=== PATIENT | female | born 1975 | race American Indian/Alaskan Native ===

== ENCOUNTER 2016-10-31 09:46 | Outpatient (CLI) | payer BC ==
--- NOTE | 2016-10-31 11:32 | Mammography Report ---
BILATERAL DIGITAL DIAGNOSTIC MAMMOGRAM with CAD: 10/31/16 09:46:00 CLINICAL: Status post right ultrasound needle biopsy on 06/30/16. The biopsy was performed at 12 o'clock 4 cm from nipple at [facility]. Although the biopsy result was nonspecific benign pathology, surgical excision was recommended for discordance with a mammographic density. Routine screening of the left breast. COMPARISON:2016 and 2017 mammograms and right breast ultrasound images from [facility] FINDINGS: The breasts are heterogeneously dense, which may obscures small masses. A previous right upper outer asymmetry is no longer identified. No mammographic finding at a right biopsy clip at 11:30-12 o'clock No mass, architectural distortion or suspicious calcifications. The left breast is negative. IMPRESSION: No mammographic evidence of malignancy. BI-RADS CATEGORY: 2 - - Benign RECOMMENDATION: Routine mammographic screening in one year. ACR BI-RADS MAMMOGRAPHIC CODES: 0 = Needs additional imaging evaluation; 1 = Negative; 2 = Benign; 3 = Probably benign; 4 = Suspicious; 5 = Malignant; 6 = Known biopsy-proven malignancy COMMENT: 1. Dense breast tissue, i.e., adenosis, fibrocystic changes, etc., may obscure an underlying neoplasm. 2. Approximately 10% of cancers are not detected with mammography. 3. A negative mammography report should not delay biopsy if a clinically suspicious mass is present. COMMENT: Patient follow-up letters are generated by our [employer] application.
== END 2016-10-31 09:47 | disposition home or self-care (01) ==
LOC: SPVWC 09:46
PROVIDERS: ATTEND Surgery
DX: Z12.31 Encounter for screening mammogram for malignant neoplasm of breast (principal)
CPT/HCPCS: 77066; G0204

== ENCOUNTER 2016-11-06 06:51 | Day surgery (SDC) | payer BC ==
--- NOTE | 2016-11-06 08:08 | Anesthesia Consultation ---
Anesthesia Consult and Med Hx Date of service: 11/06/16 - Airway Anesthetic Teeth Evaluation: Good ROM Head & Neck: Adequate Mental/Hyoid Distance: Adequate Mallampati Class: Class III Intubation Access Assessment: Possibly Difficult - Pulmonary Exam CTA: Yes - Cardiac Exam Cardiac Exam: RRR - Pre-Operative Health Status ASA Pre-Surgery Classification: ASA2 Proposed Anesthetic Plan: General (no previous GA) - Pulmonary Hx Smoking: No Hx Sleep Apnea: No (JEREMY PRE SCREEN LOW RISK) - Cardiovascular System Hx Hypertension: Yes (X 4 YRS; took beta adenike today) - Other Systems Hx Cancer: No Hx Obesity: Yes
--- NOTE | 2016-11-06 08:11 | Anesthesia Day of Surgery ---
Anesthesia Day of Surgery - Day of Surgery Patient Examined: Yes Patient H&P Reviewed: Yes Patient is NPO: Yes Beta Blockers: Yes
[2016-11-06] MEDS ORDERED: VERSED IV NR (08:30)
[2016-11-06] MEDS ORDERED: LACTATED RINGERS 1,000 ML IV SCH (08:30)
[2016-11-06] MEDS ORDERED: PEPCID IV NR (08:30)
[2016-11-06] MEDS ORDERED: XYLOCAINE 1% 20 mL ONE ×2 (08:40→11:04)
[2016-11-06] MEDS ORDERED: VANCOMYCIN/NS 1 GM/250 ML 1 GM/250 ML BAG IV NR (09:00)
[2016-11-06] MEDS ORDERED: DIPRIVAN 10 MG/ML IV ONE (09:04)
[2016-11-06] MEDS ORDERED: DILAUDID ONE (09:05)
--- NOTE | 2016-11-06 09:08 | Procedure Note ---
Date of procedure: 11/06/16 Pre-op diagnosis: rt.breast lesion Post-op diagnosis: same Procedure: needle loc Findings: n/a Anesthesia: local Surgeon: LEX FRAGOSO Estimated blood loss: minimal Pathology: none Condition: stable (surgery)
--- NOTE | 2016-11-06 10:25 | Mammography Report ---
Right breast needle localization: The patient presents with a marker in the superior right breast. The skin was cleansed on the superior breast and 1% lidocaine used for local anesthesia. Using mammographic grid technique for guidance a 5 cm Pineda needle was placed in its position confirmed with mammography. A needle was then introduced with removal of the needle with additional confirmation with mammography. There are no patient complications.
[2016-11-06] MEDS ORDERED: WATER FOR IRRIG STERILE IR ONE (10:38)
[2016-11-06] MEDS ORDERED: XYLOCAINE 1% 20 mL INFILTRATI ONE (10:38)
[2016-11-06] MEDS ORDERED: MARCAINE 0.25% INFILTRATI ONE ×2 (10:38→11:04)
[2016-11-06] MEDS ORDERED: BENADRYL IV ONE (11:00)
[2016-11-06] MEDS ORDERED: ZOFRAN ONE (11:19)
[2016-11-06] MEDS ORDERED: XYLOCAINE MPF 2% ONE (11:19)
--- NOTE | 2016-11-06 11:36 | Mammography Report ---
Operative specimen mammogram: A single tissue specimen is submitted that includes the targeted marker and localizing wire.
--- NOTE | 2016-11-06 11:45 | Short Stay Summary ---
Short Stay Documentation Date of service: 11/06/16 - History H&P: obtained from office - Allergies and Medications Current Medications: Allergies Penicillins Allergy (Verified 11/01/16 14:51) Swelling Home Medications Medication Instructions Recorded Confirmed Last Taken Type Cholecalciferol Vit D3 [Vitamin D3] 1,000 unit PO QDAY 11/01/16 11/06/16 History Cyanocobalamin (Vitamin B-12) 2,500 mcg PO DAILY 11/01/16 11/06/16 Unknown History [Vitamin B12] Ferrous Sulfate [Feosol] 325 mg PO QDAY 11/01/16 11/01/16 Unknown History Multivit-Min/FA/Lycopen/Lutein 1 each PO DAILY 11/01/16 11/01/16 Unknown History [Centrum Silver Tablet] Norgestimate-Ethinyl Estradiol 1 tab PO DAILY 11/01/16 11/01/16 Unknown History [Tri-Estarylla Tablet] Bisoprolol/Hctz [Ziac 5-6.25] 1 each PO DAILY 11/06/16 11/06/16 11/06/16 05:50 History HYDROcodone/APAP 5-325 [Mccormick 1 each PO Q6HR PRN #30 tablet 11/06/16 Unknown Rx 5/325] Active Medications Famotidine (Pepcid) 20 mg IV PREOP NR Stop: 11/06/16 14:00 Last Admin: 11/06/16 09:39 Dose: 20 mg Lactated Ringer's (Lactated Ringers) 1,000 mls @ 125 mls/hr IV DIRECT KEO Stop: 11/06/16 21:00 Last Admin: 11/06/16 09:35 Dose: 125 mls/hr Vancomycin HCl (Vancomycin/Ns 1 Gm/250 Ml) 1 gm in 250 mls @ 167.007 mls/hr IV PREOP NR PRN Reason: Protocol Stop: 11/06/16 18:00 Last Admin: 11/06/16 09:40 Dose: 167.007 mls/hr Midazolam HCl (Versed) 2 mg IV PREOP NR Stop: 11/06/16 18:00 Last Admin: 11/06/16 09:37 Dose: 2 mg - Brief post op/procedure progress note Date of procedure: 11/06/16 Pre-op diagnosis: Right breast mass Post-op diagnosis: same Procedure: Right needle localization excisional biopsy Anesthesia: GETA Findings: Radiograph specimen with wire and clip present Surgeon: NORRIS PIERSON Estimated blood loss: minimal Pathology: list (right excisional biopsy) Specimen disposition: to lab Condition: stable - Disposition Condition at discharge: Good Disposition: DC-01 TO HOME OR SELFCARE Short Stay Discharge Plan Activity: other (no heavy lifting) Diet: regular Wound: other (keep incision clean and dry; may shower in 24 hours; no baths, pools or lakes; do not rub or scrub incision) Follow up with: ROMAN FORRESTER [Other] - 7 Days NORRIS PIERSON MD [Staff Physician] - 7 Days Prescriptions: HYDROcodone/APAP 5-325 [Mccormick 5/325] 1 each PO Q6HR PRN #30 tablet PRN Reason: Pain
--- NOTE | 2016-11-06 11:50 | Operative Report ---
Operative Report Operative Report: Date of service: 11/06/2016 Preoperative diagnosis: Right breast mass of the upper outer quadrant Postoperative diagnosis: Same Procedure right needle procedure: Right needle localization excisional biopsy Surgeon: Leandra Jauregui M.D. Anesthesia: Gen. Findings: Radiographic specimen with clip and wire present Complications: None Estimated blood loss: Minimal Specimens: Right breast excisional biopsy Disposition: PACU in good condition Indications for operative procedure: This is a 41-year-old -[place] lady with history of abnormal right mammogram. Patient with ultrasound-guided needle core biopsy performed of suspicious area noted on ultrasound by outside radiologist with findings of discordant pathology. Radiology recommendations for excisional biopsy. Patient wished to proceed with the above procedure. Procedure in detail: Prior to going to the operating room radiology place dwire to localize the area of concern at clip placement. The patient was taken to the operating room. She was laid supine. Gen. anesthesia was administered without any complications. The right breast was prepped and draped in the normal sterile operative fashion. The wire was identified. Timeout was performed. Skin incision was made at the 12 o'clock position with a 15 blade knife and dissection taken down to the subcutaneous tissues. The wire was removed from the skin superiorly. First began with raising of the superior flap , followed by raising of the inferior, lateral and medial flap. Area of concern was reportedly removed. Wire was not encountered. Specimen was marked. Right breast radiograph specimen with clip and wire present. Breast cavity was anesthetized with 1% lidocaine mixed with quarter percent Marcaine. Hemostasis was obtained. The subcutaneous tissues were approximated and then closed using interrupted 3-0 Vicryl and skin brought together and closed using 4 -0 Monocryl followed by skin affix. She tolerated surgery very well and was awaken from anesthesia without any complications and transferred to PACU in good condition.
[2016-11-06 18:27] VITALS: BP 136/86
== END 2016-11-06 13:38 | disposition home or self-care (01) ==
LOC: OR 06:51
PROVIDERS: ATTEND Surgery
DX: N60.31 Fibrosclerosis of right breast (principal); I10 Essential (primary) hypertension; E66.9 Obesity, unspecified; Z68.34 Body mass index [BMI] 34.0-34.9, adult; Z79.899 Other long term (current) drug therapy; Z88.0 Allergy status to penicillin; Z98.890 Other specified postprocedural states
CPT/HCPCS: 19125; 19281; 36415; 76098; 84132; 88307; J1170; J1200; J2250; J2405; J2704; J3370; J7120

== ENCOUNTER 2017-05-28 09:47 | Outpatient (CLI) | payer BC ==
--- NOTE | 2017-05-28 10:55 | Mammography Report ---
RIGHT DIGITAL DIAGNOSTIC MAMMOGRAM with CAD: 05/28/17 09:47:00 CLINICAL: Follow-up after benign needle and surgical biopsies with nonspecific pathology. COMPARISON:10/31/16 FINDINGS: The breast is heterogeneously dense with a stable fibroglandular pattern. The biopsy clip at 12 o'clock has been excised. No mass, architectural distortion or suspicious calcifications. IMPRESSION: No mammographic evidence of malignancy. BI-RADS CATEGORY: 1 - - Negative RECOMMENDATION: Return to routine mammographic screening. ACR BI-RADS MAMMOGRAPHIC CODES: 0 = Needs additional imaging evaluation; 1 = Negative; 2 = Benign; 3 = Probably benign; 4 = Suspicious; 5 = Malignant; 6 = Known biopsy-proven malignancy COMMENT: 1. Dense breast tissue, i.e., adenosis, fibrocystic changes, etc., may obscure an underlying neoplasm. 2. Approximately 10% of cancers are not detected with mammography. 3. A negative mammography report should not delay biopsy if a clinically suspicious mass is present. COMMENT: Patient follow-up letters are generated by our [employer] application.
== END 2017-05-28 09:48 | disposition home or self-care (01) ==
LOC: SPVWC 09:47
PROVIDERS: ATTEND Surgery
DX: N63.10 Unspecified lump in the right breast, unspecified quadrant (principal); R92.8 Other abnormal and inconclusive findings on diagnostic imaging of breast

== ENCOUNTER → 2017-11-06 | Outpatient (CLI) | payer BC ==
--- NOTE | 2017-11-06 10:18 | Mammography Report ---
BILATERAL DIGITAL SCREENING MAMMOGRAM with CAD : 11/06/17 09:34:00 CLINICAL: Routine screening.Status post benign surgical biopsy. COMPARISON:05/28/17 and 10/31/16 FINDINGS: The breasts are heterogeneously dense, which may obscure small masses.Benign right upper postsurgical scar. No mass, architectural distortion or suspicious calcifications. IMPRESSION: No mammographic evidence of malignancy. BI-RADS CATEGORY: 2 -- Benign RECOMMENDATION: Routine mammographic screening in one year. COMMENT: Patient follow-up letters are generated by our [employer] application.
== END | disposition home or self-care (01) ==
LOC: SPVWC 09:34
PROVIDERS: ATTEND Surgery
DX: Z12.31 Encounter for screening mammogram for malignant neoplasm of breast (principal); I10 Essential (primary) hypertension; E66.9 Obesity, unspecified; Z88.0 Allergy status to penicillin
CPT/HCPCS: 77067

== ENCOUNTER 2018-11-12 09:15 | Outpatient (CLI) | payer BC ==
--- NOTE | 2018-11-12 09:56 | Mammography Report ---
BILATERAL DIGITAL SCREENING MAMMOGRAM WITH CAD INDICATION: Routine screening mammography. Street of right benign surgical biopsy. TECHNIQUE: Digital bilateral 2D mammography was obtained in the craniocaudal and mediolateral obliq ue projections. This examination was interpreted with the benefit of Computer-Aided Detection analysi s. COMPARISON: 11/06/2017 FINDINGS: Breast Density: The breasts are heterogeneously dense, which may obscure small masses. No mass, architectural distortion or suspicious calcifications. Stable right upper outer benign posts urgical scar. IMPRESSION:No mammographic evidence of malignancy. BI-RADS Category 2: Benign. No mammographic evidence of malignancy. Recommend routine screening ma mmography in one year. A "normal" or negative report should not discourage follow up or biopsy of a clinically significant f inding. A written summary of these findings will be mailed to the patient. The patient will be entered into a mammography reporting system which will generate a reminder letter for the patient's next appointmen t at the appropriate interval. The [employer] recommends yearly mammograms starting at age 40 and continuing as l danilo as a woman is in good health. Breast MRI is recommended for women with an approximate 20-25% or greater lifetime risk of breast cancer, including women with a strong family history of breast or ova kathryn cancer or who have been treated for Hodgkin's disease. Signer Name: Mark Wheeler MD Signed: 11/12/2018 9:52 AM Workstation Name: [id number]
== END 2018-11-12 09:16 | disposition home or self-care (01) ==
LOC: SPVWC 09:15
PROVIDERS: ATTEND Surgery
DX: Z12.31 Encounter for screening mammogram for malignant neoplasm of breast (principal); I10 Essential (primary) hypertension; E66.9 Obesity, unspecified
CPT/HCPCS: 77067

== ENCOUNTER 2019-11-18 09:07 | Outpatient (CLI) | payer BC ==
--- NOTE | 2019-11-18 09:39 | Mammography Report ---
DIGITAL SCREENING MAMMOGRAM WITH CAD, 11/18/2019 INDICATION: Routine screening mammography. TECHNIQUE: Digital bilateral 2D mammography was obtained in the craniocaudal and mediolateral obliq ue projections. This examination was interpreted with the benefit of Computer-Aided Detection analysi s. COMPARISON: 11/06/2017 FINDINGS: Breast Density: There are scattered areas of fibroglandular density. There is no evidence of dominant mass, suspicious calcifications or architectural distortion in eithe r breast. Postsurgical scar, right breast. Overall, no interval change. IMPRESSION: No evidence of malignancy. Follow up recommendation: Routine yearly BI-RADS Category 2: Benign. A "normal" or negative report should not discourage follow up or biopsy of a clinically significant f inding. A written summary of these findings will be mailed to the patient. The patient will be entered into a mammography reporting system which will generate a reminder letter for the patient's next appointmen t at the appropriate interval. The [employer] recommends yearly mammograms starting at age 40 and continuing as l danilo as a woman is in good health. Breast MRI is recommended for women with an approximate 20-25% or greater lifetime risk of breast cancer, including women with a strong family history of breast or ova kathryn cancer or who have been treated for Hodgkin's disease. Signer Name: Amanda Mckeon MD Signed: 11/18/2019 9:34 AM Workstation Name: [id number]
== END 2019-11-18 09:08 | disposition home or self-care (01) ==
LOC: SPVWC 09:07
PROVIDERS: ATTEND Surgery
DX: Z12.31 Encounter for screening mammogram for malignant neoplasm of breast (principal); N64.89 Other specified disorders of breast
CPT/HCPCS: 77067

== ENCOUNTER 2020-11-23 09:28 | Outpatient (CLI) | payer BC ==
--- NOTE | 2020-11-23 11:01 | Mammography Report ---
DIGITAL SCREENING MAMMOGRAM WITH CAD, 11/23/2020 CLINICAL INFORMATION / INDICATION: Routine screening mammography. SCREENING MAMMO Z12.31 TECHNIQUE: Digital bilateral 2D mammography was obtained in the craniocaudal and mediolateral obliqu e projections. This examination was interpreted with the benefit of Computer-Aided Detection analysis . COMPARISON: 10/31/2016 through 11/18/2019. FINDINGS: Breast Density: The breasts are heterogeneously dense, which may obscure small masses. No dominant mass, suspicious calcifications, or architectural distortion in either breast. Right breast scarring is again noted. There are a few benign calcifications bilaterally. IMPRESSION: No mammographic evidence of malignancy. Follow up recommendation: Routine yearly BI-RADS Category 2: Benign. A "normal" or negative report should not discourage follow up or biopsy of a clinically significant f inding. A written summary of these findings will be mailed to the patient. The patient will be entered into a mammography reporting system which will generate a reminder letter for the patient's next appointmen t at the appropriate interval. The [employer] recommends yearly mammograms starting at age 40 and continuing as l danilo as a woman is in good health. Breast MRI is recommended for women with an approximate 20-25% or greater lifetime risk of breast cancer, including women with a strong family history of breast or ova kathryn cancer or who have been treated for Hodgkin's disease. Signer Name: Denilson Harris MD Signed: 11/23/2020 10:56 AM Workstation Name: [id number]
== END 2020-11-23 09:29 | disposition home or self-care (01) ==
LOC: SPVWC 09:28
PROVIDERS: ATTEND Surgery
DX: Z12.31 Encounter for screening mammogram for malignant neoplasm of breast (principal); N64.89 Other specified disorders of breast
CPT/HCPCS: 77067

== ENCOUNTER 2021-11-24 08:33 | Outpatient (CLI) | payer BC ==
--- NOTE | 2021-11-25 14:36 | Mammography Report ---
DIGITAL SCREENING MAMMOGRAM WITH CAD, 11/24/2021 CLINICAL INFORMATION / INDICATION: Routine screening mammography. TECHNIQUE: Digital bilateral 2D mammography was obtained in the craniocaudal and mediolateral obliqu e projections. This examination was interpreted with the benefit of Computer-Aided Detection analysis . COMPARISON: 11/23/2020, 11/18/2019, 11/12/2018 FINDINGS: Breast Density: The breasts are heterogeneously dense, which may obscure small masses. Right breast: No dominant mass, suspicious calcifications, or architectural distortion in the right b reast. Left breast: There is a new asymmetry in the lateral left breast posterior depth seen on the CC view only which will require additional evaluation. IMPRESSION: 1. New left breast asymmetry which will require additional evaluation with spot compression views and possible ultrasound. Follow up recommendation: Special View: Spot Compression BI-RADS Category 0: INCOMPLETE. Needs additional imaging evaluation and/or prior mammograms for rosario rison. A "normal" or negative report should not discourage follow up or biopsy of a clinically significant f inding. A written summary of these findings will be mailed to the patient. The patient will be entered into a mammography reporting system which will generate a reminder letter for the patient's next appointmen t at the appropriate interval. The [employer] recommends yearly mammograms starting at age 40 and continuing as l danilo as a woman is in good health. Breast MRI is recommended for women with an approximate 20-25% or greater lifetime risk of breast cancer, including women with a strong family history of breast or ova kathryn cancer or who have been treated for Hodgkin's disease. Signer Name: Elissa Muñoz MD Signed: 11/25/2021 2:31 PM Workstation Name: [id number]
== END 2021-11-24 08:34 | disposition home or self-care (01) ==
LOC: SPVWC 08:33
PROVIDERS: ATTEND Obstetrics & Gynecology
DX: Z12.31 Encounter for screening mammogram for malignant neoplasm of breast (principal)
CPT/HCPCS: 77067